=== PATIENT | male | born 1990 | race Two or more races ===

== ENCOUNTER 2022-12-29 13:46 | Emergency (ER) | payer OTHER ==
[~2022-12-29] VITALS: Ht 182.9 cm; Wt 77.1 kg
[2022-12-29] MEDS ORDERED: TUSNEL LIQUID178 ML PO (18:26)
[2022-12-29] MEDS ORDERED: ZITHROMAX500 MG PO (18:26)
[2022-12-29] MEDS ORDERED: DOLOGEN CAPLET1 EACH PO (18:27)
== END 2022-12-29 18:38 | disposition home or self-care (01) ==
LOC: ER 13:46
DX: J98.8 Other specified respiratory disorders (principal); Z20.822 Contact with and (suspected) exposure to COVID-19